=== PATIENT | female | born 1985 | race American Indian/Alaskan Native ===

== ENCOUNTER 2018-03-07 11:06 | Outpatient (CLI) | payer OTHER ==
[2018-03-07] MEDS ORDERED: LACTATED RINGERS 500 ML IV ONE (11:36)
[2018-03-07 12:29] VITALS: BP 112/56
--- NOTE | 2018-03-07 13:34 | Ultrasound Report ---
ULTRASOUND OB LIMITED History: labor Technique: Transabdominal ultrasound with Doppler interrogation. Gestation: Single Position: Cephalic Amniotic Fluid: Normal JOSE = 11.1 cm Placenta: Fundal, left lateral Placental Grade: 1 Heart Rate: 157 BPM Cervical length: 4.4 cm (Normal > 3 cm)
== END 2018-03-07 15:44 | disposition home or self-care (01) ==
LOC: TRG 11:06
PROVIDERS: ATTEND Obstetrics & Gynecology
DX: O47.03 False labor before 37 completed weeks of gestation, third trimester (principal); Z3A.32 32 weeks gestation of pregnancy
CPT/HCPCS: 59025; 76815; J7120